=== PATIENT | male | born 1955 | race Caucasian/White ===

== ENCOUNTER 2017-03-30 08:20 | Day surgery (SDC) | payer BC ==
[~2017-03-30] VITALS: Ht 172.7 cm; Wt 93.6 kg
[2017-03-30] VITALS (8 sets, daily range): BP systolic 97–115; BP diastolic 58–76; PULSE 56–63; TEMP 97–97.6
[2017-03-30] MEDS ORDERED: ASPIRIN 32325 MG/TAB PO (08:34)
[2017-03-30] MEDS ORDERED: LOTENSIN40 MG PO (08:35)
[2017-03-30] MEDS ORDERED: HYGROTON 2525 MG/TAB PO (08:36)
[2017-03-30] MEDS ORDERED: CINNAMON500 MG PO (08:37)
[2017-03-30] MEDS ORDERED: EPA FISH OIL1 SGL PO (08:38)
[2017-03-30] MEDS ORDERED: PRAVACHOL 40MG40 MG PO (08:40)
[2017-03-30 08:52] LABS: HEMATOCRIT 42.4 % (42.0-52.0); HEMOGLOBIN 14.7 g/dl (13.5-18.0); MEAN CELL VOLUME 85 fl (80.0-100.0); MEAN CORPUSCULAR HEMOGLOBIN 29 pg (27.0-31.0); MEAN CORPUSCULAR HGB CONC 35 g/dl (33.0-37.0); MEAN PLATELET VOLUME 8.9 fl (7.4-10.4); PLATELET COUNT 167 K/mm3 (130-400); RED BLOOD COUNT 5.01 M/mm3 (4.20-5.60); WHITE BLOOD COUNT 6.3 K/mm3 (4.8-10.8)
[2017-03-30 09:01] LABS: INR 1.2 (0.8-3.0); PROTHROMBIN TIME 13.4 SECONDS (9.7-12.8)
[2017-03-30 09:04] LABS: CALCIUM 9.4 mg/dL (8.4-10.2); CREATININE, serum 1.22 mg/dL (0.66-1.25); POTASSIUM 3.8 mmol/L (3.4-5.0)
== END 2017-03-30 14:34 | disposition home or self-care (01) ==
LOC: COL.CAR 08:20
PROVIDERS: Internal Medicine Cardiovascular Disease
DX: I25.10 Atherosclerotic heart disease of native coronary artery without angina pectoris (principal); I35.0 Nonrheumatic aortic (valve) stenosis; I10 Essential (primary) hypertension; E78.00 Pure hypercholesterolemia, unspecified; Z72.3 Lack of physical exercise; Z82.49 Family history of ischemic heart disease and other diseases of the circulatory system
CPT/HCPCS: C1769; J1644; J2250; J3010; Q9967